=== PATIENT | male | born 1965 | race Two or more races ===

== ENCOUNTER 2023-10-11 10:37 | Emergency (ER) | payer SELFPAY ==
[~2023-10-11] VITALS: Ht 167.6 cm; Wt 74.8 kg
[2023-10-11] MEDS ORDERED: SULF1TAB48 PO (11:50)
[2023-10-11] MEDS ORDERED: TDAP [DIPH/PERTUSSIS/TET] 0.5 ML VIAL IM ONE (11:53)
[2023-10-11] MEDS ORDERED: SULFAMETH/TRIMETH 800/160 MG 1 UDTAB TABLET ONE (11:53)
[2023-10-11] MEDS: SULFAMETH/TRIMETH 800/160 MG 1 UDTAB TABLET PO ONE (11:57)
[2023-10-11] MEDS: TDAP [DIPH/PERTUSSIS/TET] 0.5 ML VIAL IM ONE (12:04)
[2023-10-11 12:14] VITALS: BP 195/105; TEMP 98.2; O2SAT 100
== END 2023-10-11 12:14 | disposition home or self-care (01) ==
LOC: ER 10:42
DX: L03.116 Cellulitis of left lower limb (principal); M79.672 Pain in left foot; E11.9 Type 2 diabetes mellitus without complications; Z79.899 Other long term (current) drug therapy
CPT/HCPCS: 90715